=== PATIENT | female | born 1945 | race Caucasian/White ===

== ENCOUNTER 2019-04-25 06:36 | Observation (INO) | payer MEDICARE, OTHER ==
[2019-04-21 09:24] LABS: BASOPHILS % 0.5 % (0.0-1.0); EOSINOPHILS % 0.4 % (0.0-6.0); HEMATOCRIT 39.5 % (34.2-44.1); HEMOGLOBIN 12.8 g/dL (12.0-16.0); LYMPHOCYTES # (AUTO) 1.5 (1.0-3.2); LYMPHOCYTES % 19.4 % (18.0-39.1); MEAN CORPUSCULAR HEMOGLOBIN 27.3 pg (28-32); MEAN CORPUSCULAR HGB CONC 32.4 g/dL (31-35); MEAN CORPUSCULAR VOLUME 84.2 fL (81-99); MONOCYTES # (AUTO) 0.4 (0.2-0.8); MONOCYTES % 5.2 % (4.4-11.3); NEUTROPHILS # (AUTO) 5.8 (2.1-6.9); NEUTROPHILS % 74.1 % (38.7-80.0); PLATELET COUNT 249 x10e3/uL (140-360); RED BLOOD COUNT 4.69 x10e6/uL (3.6-5.1); RED CELL DISTRIBUTION WIDTH 13.2 % (11.7-14.4)
[2019-04-21 09:41] LABS: ALANINE AMINOTRANSFERASE 8 IU/L (0-55); ALBUMIN 3.9 g/dL (3.5-5.0); ALBUMIN/GLOBULIN RATIO 1.2 (0.8-2.0); ALKALINE PHOSPHATASE 74 IU/L (40-150); ANION GAP 13.1 mmol/L (8-16); BLOOD UREA NITROGEN 14 mg/dL (7-26); BUN/CREATININE RATIO 16 (6-25); CALCIUM 10.3 mg/dL (8.4-10.2); CARBON DIOXIDE 27 mmol/L (22-29); CHLORIDE 105 mmol/L (98-107); EST GLOMERULAR FILTRATION RATE > 60 ML/MIN (60-); GLUCOSE 119 mg/dL (74-118); POTASSIUM 5.1 mmol/L (3.5-5.1); SODIUM 140 mmol/L (136-145)
--- NOTE | 2019-04-21 09:53 | Diagnostic Imaging Report ---
EXAMINATION: PA and lateral views of the chest. COMPARISON: None CLINICAL HISTORY: Preoperative study for hysterectomy DISCUSSION: The lungs are well-inflated and without focal consolidation, pleural effusion, or pneumothorax. Linear scar in the right midlung. Tortuosity and atherosclerotic calcification of the thoracic aorta. Normal heart size. No pulmonary edema. No acute osseous abnormality. Bilateral breast implants. IMPRESSION: No acute cardiopulmonary abnormalities. Signed by: Dr. Uriel Agrawal M.D. on 04/21/2019 9:50 AM
[~2019-04-25] VITALS: Ht 167.6 cm; Wt 63.3 kg
[~2019-04-25 06:36] MED LIST: ASPIR 8181 MG; PROAIR HFA INH8.5 GM IH; VITAMIN B COMP1 EAC1; VITAMIN D3 PO
--- OUTSIDE RECORDS SUMMARY | 2019-04-25 06:39 | XMS REPORT ---
Author Author [facility] Address Unknown Phone Unavailable Care Team Providers Care Pattern Setter Name Role Phone XOCHITL MCKINNEY Unavailable Unavailable Problems This patient has no known problems. Allergies, Adverse Reactions, Alerts This patient has no known allergies or adverse reactions. Medications This patient has no known medications. Results Test Description Test Time Test Comments Text Results Atomic Results Result Comments CHEST 2 VIEWS 2019-04-21 09:48:00 [place] [id number] Patient Name: PEDRO LUIS INFANTE MR #: [id number] : 1945 Age/Sex: 74/F Req #: [id number] Adm Physician: Ordered by: XOCHITL MCKINNEY MD Report #: [id number] Location: OR Room/Bed: Procedure: [id number] DX/CHEST 2 VIEWS Exam Date: Exam Time: REPORT STATUS: Signed EXAMINATION: PA and lateral views of the chest. COMPARISON: None CLINICAL HISTORY: Preoperative study for hysterectomy DISCUSSION: The lungs are well-inflated and without focal consolidation, pleural effusion, or pneumothorax. Linear scar in the right midlung. Tortuosity and atherosclerotic calcification of the thoracic aorta. Normal heart size. No pulmonary edema. No acute osseous abnormality. Bilateral breast implants. IMPRESSION: No acute cardiopulmonary abnormalities. Signed by: Dr. Brayan Garcia M.D. on 04/21/2019 9:50 AM Dictated By: BRAYAN GARCIA MD 9 Transcribed By: ALEKSANDRA on 04/21/19949 COPY TO: XOCHITL MCKINNEY MD
[2019-04-25] MEDS ORDERED: CEFAZOLIN SOD 2 GM/D5W 50ML 50 ML IV ONE (07:37)
[2019-04-25] MEDS ORDERED: ESTROGENS CONJUGATED VAGINAL CR 45 GM TUBE PV ONE (09:18)
[2019-04-25] MEDS ORDERED: BUPIVACAINE 0.25%/EPI 30ML SDV INJ ONE (09:18)
[2019-04-25] MEDS ORDERED: SODIUM CHLORIDE 0.9% 50ML 0 ML ONE (09:18)
[2019-04-25] MEDS ORDERED: SCOPOLAMINE 1.5 MG PATCH ONE (09:44)
[2019-04-25] MEDS ORDERED: IBUPROFEN 800MG/ 250ML 250 ML IV ONE (09:45)
[2019-04-25] MEDS ORDERED: KETOROLAC TROMETHAMINE 30 MG/ML VIAL IM PRN (12:15)
[2019-04-25] MEDS ORDERED: PROMETHAZINE HCL (IM) 25 MG/ML VIAL IV PRN (12:15)
[2019-04-25] MEDS ORDERED: SIMETHICONE 80 MG CHEW PO PRN (12:15)
[2019-04-25] MEDS ORDERED: HYDROCODONE/APAP 5MG-325MG TAB PO PRN (12:15)
[2019-04-25] MEDS ORDERED: MEPERIDINE HCL INJ 25 MG/ML VIAL IV PRN (12:15)
[2019-04-25] MEDS ORDERED: FENTANYL CITRATE/PF 100MCG/2 ML INJ ONE ×2 (12:16→13:26)
--- NOTE | 2019-04-25 13:10 | NUR ---
RECEIVED REPORT AND PT RECEIVED TO THE FLOOR AT THIS TIME. VITALS WNL, CHANEL TO BEDSIDE DRAINAGE AND LEG ANCHOR IN PLACE. PT DENIES NEEDS AT THIS TIME.
[2019-04-25] MEDS ORDERED: MIDAZOLAM HCL 2 MG/2 ML VIAL ONE (13:26)
[2019-04-25 13:30] VITALS: BP 126/65
[2019-04-25 13:52] VITALS: BP 147/65
[2019-04-25 16:06] VITALS: BP 135/63
[2019-04-25] MEDS ORDERED: SEVOFLURANE INHAL SOLN 250 ML PEN BTL ONE (17:04)
[2019-04-25] MEDS ORDERED: DEXAMETHASONE SOD PHOS INJ 4 MG/ML VIAL ONE (17:04)
[2019-04-25] MEDS ORDERED: ONDANSETRON HCL INJ 2MG/ML 2ML 2 MG/ML VIAL ONE (17:04)
[2019-04-25] MEDS ORDERED: GLYCOPYRROLATE INJ 1MG/ 5 ML SYR ONE (17:04)
[2019-04-25] MEDS ORDERED: PROPOFOL IV EMULSION 10 MG/ML 20 ML VIAL ONE (17:04)
[2019-04-25] MEDS ORDERED: NEOSTIGMINE 5 MG/5ML SYR ONE (17:04)
[2019-04-25] MEDS ORDERED: ROCURONIUM BROMIDE 10 MG/ML 5ML VIAL ONE (17:04)
[2019-04-25] MEDS ORDERED: LIDOCAINE HCL 2% LOCAL INJ 5 ML SDV VIAL INJ ONE (17:04)
--- NOTE | 2019-04-25 18:59 | Operative Report ---
DATE OF PROCEDURE: SURGEON: Faustina Reyes MD PREOPERATIVE DIAGNOSIS: Pelvic organ prolapse. POSTOPERATIVE DIAGNOSIS: Pelvic organ prolapse. PROCEDURES: Vaginal hysterectomy, anterior repair, and sacrospinous colpopexy. COMPLICATIONS: None. ESTIMATED BLOOD LOSS: 50 mL. PROCEDURE IN DETAIL: The patient was taken to the OR. General anesthesia was induced. She was prepped and draped in a sterile fashion, placed in dorsal lithotomy position. After examination under anesthesia, weighted speculum was placed inside the vagina. Cervix was grasped with single tooth tenaculum. The subvaginal tissue was injected with Marcaine with epinephrine 0.25%, 30 mL was injected around the cervix. A circumferential vaginal skin incision was made at the level of the bladder line around the cervix and bladder was dissected off the cervix using sharp dissection using curved Steele scissors and gentle sweeps of latex wrapped on the index finger. The pouch of Jai was opened with Metzenbaum scissors and a weighted speculum was advanced in the pouch of Jai. LigaSure was applied at the uterosacral, vessels occluded and cut and same was performed on the other side. Uterine vessels were clamped using LigaSure, vessel occluded and pedicle was cut. Following this, the fundus was brought outside the introitus and with a finger around the fundus, anterior pouch was opened and curved Zeppelin clamps were applied on each side. Uterus was freed and pedicles were secured with transfixion suture of Vicryl 0. Following this, hemostasis was found to be adequate and attention was paid to the anterior repair where the edge of the anterior vaginal wall was held with two hemostats and using Metzenbaum scissors underneath the vagina using the push technique, the vagina was dissected off the bladder and anterior wall of the vagina was opened with Metzenbaum scissors. The two flaps of vagina dissected off the underlying wall of the bladder using both sharp and blunt dissection. Following this, the pelvic fascia around the inferior pubic ramus was pierced with an index finger, ischial spinous and sacral spinous segment palpated. Capio stitch Vicryl tie was placed on the sacral spinous ligament and the other end into the vaginal vault. The same was repeated on the other side. The pubocervical ligament on each side approximated using Vicryl stitch. The excess vaginal skin was trimmed using curved Steele scissors. The vagina was closed with interlocking suture of Vicryl 0 and the sacrospinous sutures were tied to the vaginal vault and the vaginal vault was lifted. Suction and irrigation of the vaginal cavity was performed. Martin catheter was inserted and vagina was packed with Premarin and vaginal pack. The patient tolerated the procedure well. Lap, instrument, and needle count was correct x2 at the end of the procedure. Faustina Reyes MD DD/FE /[id number]
--- NOTE | 2019-04-25 19:00 | NUR ---
Bedside report received and walking rounds complete. Pt A&O and resting in bed and in no apparent distress. All safety measures ensured and pt call fernandez near. Pt encouraged to use call fernandez for assistance.
[2019-04-25 19:23] VITALS: BP 119/66
[2019-04-25 19:32] VITALS: BP 119/66
[2019-04-25] MEDS ORDERED: ZOLPIDEM TARTRATE 5 MG TAB PO PRN (21:00)
[2019-04-26 00:10] VITALS: BP 117/62
[2019-04-26 04:29] VITALS: BP 117/59
--- NOTE | 2019-04-26 05:32 | NUR ---
Strong and vaginal packing removed. 500cc removed from strong. Pt tolerated well.
[2019-04-26 05:51] LABS: HEMATOCRIT 34.5 % (34.2-44.1); HEMOGLOBIN 11.4 g/dL (12.0-16.0)
[2019-04-26 06:18] LABS: ALANINE AMINOTRANSFERASE 7 IU/L (0-55); ALBUMIN 3.5 g/dL (3.5-5.0); ALBUMIN/GLOBULIN RATIO 1.3 (0.8-2.0); ALKALINE PHOSPHATASE 64 IU/L (40-150); ANION GAP 10.9 mmol/L (8-16); BLOOD UREA NITROGEN 15 mg/dL (7-26); BUN/CREATININE RATIO 18 (6-25); CALCIUM 9.5 mg/dL (8.4-10.2); CARBON DIOXIDE 24 mmol/L (22-29); CHLORIDE 102 mmol/L (98-107); CREATININE, SERUM 0.84 mg/dL (0.57-1.11); EST GLOMERULAR FILTRATION RATE > 60 ML/MIN (60-); GLUCOSE 95 mg/dL (74-118); POTASSIUM 3.9 mmol/L (3.5-5.1); SODIUM 133 mmol/L (136-145)
--- NOTE | 2019-04-26 06:26 | NUR ---
Bladder scanned pt, 0cc in bladder. Pt due to void.
[2019-04-26 07:11] VITALS: BP 118/56
[2019-04-26 09:41] VITALS: BP 118/56
[2019-04-26 11:15] VITALS: BP 109/54
--- NOTE | 2019-04-26 13:50 | NUR ---
Pt voided less than 100cc of urine at this time. No c/o burning or irritation.
--- NOTE | 2019-04-26 14:13 | NUR ---
Dr. Reyes at bedside. Informed nurse for pt to void again, if not voided to bladder scan.
--- NOTE | 2019-04-26 14:50 | NUR ---
Bladder scan obtained at this time, >500cc of urine obtained in bladder. Dr. Reyes notified.
--- NOTE | 2019-04-26 15:05 | NUR ---
Dr. Reyes gave orders to send pt home with strong catheter and to have pt return to office Wednesday and strong will be removed.
--- NOTE | 2019-04-26 15:10 | NUR ---
New orders explained to pt. Pt refused strong catheter. Nurse informed Dr. Reyes of refusal.
[2019-04-26] MEDS ORDERED: TYLENOL WITH C1 EACH PO (15:30)
[2019-04-26 15:34] VITALS: BP 148/71
== END 2019-04-26 17:28 | disposition home or self-care (01) ==
LOC: OR 06:36 → PACU V 12:05 → IMCU 13:21
PROVIDERS: ADMIT Obstetrics & Gynecology; ATTEND Obstetrics & Gynecology
DX: N81.89 Other female genital prolapse (principal); Z01.810 Encounter for preprocedural cardiovascular examination; Z01.812 Encounter for preprocedural laboratory examination; Z01.811 Encounter for preprocedural respiratory examination; J45.909 Unspecified asthma, uncomplicated
CPT/HCPCS: 36415 ×2; 57260; 58260; 71046; 80053 ×2; 85014; 85018; 85025; 88307; 93005; G0378 ×2; J0690; J1100; J1885; J2001; J2250; J2405; J2704; J3490

== ENCOUNTER 2019-04-28 18:57 | Emergency (ER) | payer MEDICARE ==
[~2019-04-28] VITALS: Ht 167.6 cm; Wt 61.7 kg
[~2019-04-28 18:57] MED LIST changes: +TYLENOL WITH C1 EACH PO
== END 2019-04-28 19:47 | disposition home or self-care (01) ==
LOC: ER 18:57
DX: R30.0 Dysuria (principal); R33.9 Retention of urine, unspecified
CPT/HCPCS: 51700; 99282